=== PATIENT | female | born 1945 | race Caucasian/White ===

== ENCOUNTER 2020-12-24 07:56 | Outpatient (CLI) | payer MEDICARE | END 2020-12-24 07:57 | disposition home or self-care (01) | LOC: RAD-FRANK 07:56 | PROVIDERS: ATTEND Nurse Practitioner Family | DX: M25.532 Pain in left wrist (principal) ==

== ENCOUNTER 2023-05-29 10:58 | Outpatient (CLI) | payer MEDICARE | END 2023-05-29 10:59 | disposition home or self-care (01) | LOC: RAD 10:58 | PROVIDERS: ATTEND Radiology Radiation Oncology | DX: R13.19 Other dysphagia (principal); C02.9 Malignant neoplasm of tongue, unspecified | CPT/HCPCS: 74230 ==

== ENCOUNTER 2023-06-07 15:13 | Outpatient (CLI) | payer MEDICARE, OTHER | END 2023-06-07 15:14 | disposition home or self-care (01) | LOC: BICRAD 15:13 | PROVIDERS: ATTEND Nurse Practitioner Family | DX: M53.3 Sacrococcygeal disorders, not elsewhere classified (principal); M47.816 Spondylosis without myelopathy or radiculopathy, lumbar region | CPT/HCPCS: 72100 ==

== ENCOUNTER 2023-08-29 13:08 | Outpatient (CLI) | payer MEDICARE, OTHER | END 2023-08-29 13:09 | disposition home or self-care (01) | LOC: BICCT 13:08 | PROVIDERS: ATTEND Radiology Radiation Oncology | DX: C02.9 Malignant neoplasm of tongue, unspecified (principal); C76.0 Malignant neoplasm of head, face and neck; J98.11 Atelectasis; J84.10 Pulmonary fibrosis, unspecified; I25.10 Atherosclerotic heart disease of native coronary artery without angina pectoris; I51.7 Cardiomegaly | CPT/HCPCS: 70490; 71250; 82565 ==

== ENCOUNTER 2023-10-16 11:11 | Outpatient (CLI) | payer MEDICARE, OTHER | END 2023-10-16 11:12 | disposition home or self-care (01) | LOC: ULT 11:11 | PROVIDERS: ATTEND Nurse Practitioner Family | DX: R74.01 Elevation of levels of liver transaminase levels (principal); K76.0 Fatty (change of) liver, not elsewhere classified | CPT/HCPCS: 76705 ==

== ENCOUNTER 2024-03-28 14:28 | Outpatient (CLI) | payer MEDICARE, OTHER | END 2024-03-28 14:29 | disposition home or self-care (01) | LOC: RAD 14:28 | PROVIDERS: ATTEND Internal Medicine | DX: R06.00 Dyspnea, unspecified (principal) | CPT/HCPCS: 71046 ==

== ENCOUNTER 2024-12-04 12:29 | Outpatient (CLI) | payer MEDICARE, OTHER | END 2024-12-04 12:30 | disposition home or self-care (01) | LOC: BICMAMMO 12:29 | PROVIDERS: ATTEND Nurse Practitioner Family | DX: Z12.31 Encounter for screening mammogram for malignant neoplasm of breast (principal); Z80.3 Family history of malignant neoplasm of breast; Z85.028 Personal history of other malignant neoplasm of stomach; Z85.118 Personal history of other malignant neoplasm of bronchus and lung; Z85.89 Personal history of malignant neoplasm of other organs and systems | CPT/HCPCS: 77063; 77067 ==